=== PATIENT | female | born 1960 | race Caucasian/White ===

== ENCOUNTER → 2024-09-30 08:36 | Outpatient (REF) | payer OTHER, SELFPAY | LOC: RAD 08:36 | PROVIDERS: ATTENDING PHYSICIAN Physician Assistant; FAMILY PHYSICIAN Family Medicine | DX: E34.9 Endocrine disorder, unspecified (principal); M81.0 Age-related osteoporosis without current pathological fracture | CPT/HCPCS: 76536; 78071; A9500 ==

== ENCOUNTER → 2025-04-16 13:15 | Outpatient (REF) | payer OTHER, SELFPAY | LOC: WDC 13:15 | PROVIDERS: ATTENDING PHYSICIAN Obstetrics & Gynecology; FAMILY PHYSICIAN Family Medicine | DX: Z12.31 Encounter for screening mammogram for malignant neoplasm of breast (principal) | CPT/HCPCS: 77063; 77067 ==